=== PATIENT | female | born 1980 | race American Indian/Alaskan Native ===

== ENCOUNTER 2024-09-17 09:47 | Outpatient (REF) | payer OTHER, SELFPAY ==
--- NOTE | ~2024-09-17 | US_ITS ---
EXAMINATION: US ABDOMEN COMPLETE CLINICAL INFORMATION: Abdominal pain.. COMPARISON: None available. TECHNIQUE: Real-time imaging of the abdominal viscera using grayscale and color Doppler technique. FINDINGS: PANCREAS: No peripancreatic fluid collections. ABDOMINAL AORTA: The proximal, mid, and distal segments are normal in caliber. INFERIOR VENA CAVA: Visualized portions are normal. LIVER: Liver measures 16 cm. Increased echotexture. No nodular surface. No solid or cystic lesion seen by the glass technologist. No intrahepatic biliary ductal dilatation. GALLBLADDER: Numerous hyperechoic lesions with posterior shadowing back in the gallbladder. The gallbladder wall measures 4 mm. No pericholecystic fluid collection. COMMON BILE DUCT: 4 mm. RIGHT KIDNEY: 10 cm. Normal echotexture. Normal renal cortical thickness. No hydronephrosis. No solid or cystic lesion. Normal flow on color Doppler interrogation of the renal hilum. LEFT KIDNEY: 11 cm. Normal echotexture. Normal renal cortical thickness. No hydronephrosis. No solid or cystic lesion. Normal flow on color Doppler interrogation of the renal hilum. SPLEEN: 9 cm. No focal lesion.. FREE FLUID: None. US/US abdomen complete IMPRESSION: Cholelithiasis. Upper normal limits gallbladder wall. Hepatomegaly, mild and steatosis. No hydronephrosis. No ascites. Electronically signed by: Louie Walker MD 09/17/2024 10:50 AM EST
--- OUTSIDE RECORDS SUMMARY | 2024-09-17 11:21 | XMS_ITS | Continuity of Care Document ---
Author Organization [facility] Address [address] [facility] [address] [place] [address] Phone Care Team Providers Care Life Management Teacher Name Role Phone Elli Douglas, F.A.C.S., Mimi Unavailable Un available Allergies, Adverse Reactions, Alerts Substance Reaction Status Criticality No Known Allergies Active No Inform ation Medications Medication Instructions Dosage Effective Dates (start - stop) Status Comments DermOtic Oil 0.01 % ear drops instill 5 drop by otic route 2 times every day into affected ear(s) 5.00 drop - Active betamethasone dipropionate 0.05 % topical cream apply by topical route every day a thin layer to the affected area(s) 0.00 - Active clindamycin HCl 300 mg capsule take 1 capsule by ORAL route every 8 hours 300 MG - No Longer Active Procedures Procedure Date Offic/outpt E&m Estab Minor 18 Offic/outpt E&m Estab Low-mod 8 Offic/outpt E&m Estab Minor 16 Offic Cons New/estab Mod 40 Mi 16 Advance Directives Directive Yes / No Effective Date File Name No Information Encounters Encounter Description Practice Location Reason(s) For Visit Diagnoses Date Provider Providers Copied on Encounter Offic/outpt E&m Estab Minor 10 [facility], [address] [facility] [address], [place], [place], [id number], [place] tel:[phone] [facility] Follow Up of Ear pain (chief complaint) Chronic diffuse otitis externa of right earDermatiti s Oct- 8 Elli Douglas, Joao Le. [address] [place] [address], [address], [address] [place] [address], . tel:[phone] Referring Provider: Santana nickerson MD, [address] [facility], [place], [place], [facility]. tel:[phone] Offic/outpt E&m Estab Low-mod [facility], [address] [place] [address], [address] [place] [address], [place] tel:[phone] [facility] ear pain (chief complaint) Chronic diffuse otitis externa of right earDermatiti s Sep- 8 Elli Douglas, Joao Le. [address] [place] [address], [address] [place] [address], [address] [place] [address], . tel:[phone] Referring Provider: Santana nickerson MD, [address] [facility], [place], [place], [facility]. tel:[phone] Offic/outpt E&m Estab Minor 10 [facility], [address] [place] [address], [address] [place] [address], [place] tel:[phone] [facility] ear drainage (chief complaint) Dermatitis Dec-0 6 Brian Byrne. [address] [place] [address] [place] [address], [address] [place] [address], [place]. tel:[phone] Referring Provider: Santana nickerson MD, [address] [facility], [place], [place], [facility]. tel:[phone] Offic Cons New/estab Mod 40 Mi [facility], [address] [facility] [address], [place], [place], [id number], tel:[phone] [facility] ear pain (chief complaint) DermatitisCh ronic diffuse otitis externa of right ear Oct- 6 Elli Douglas, Joao Le. [address] [facility], [address], [place], [place], [id number], . tel:[phone] Referring Provider: Santana nickerson MD, [address] [facility], [place], [place], [facility]. tel:[phone] Family History Family Member Type Diagnosis Age At Onset Family h/o Problem (finding) Kidney Family h/o Problem (finding) Migraines Family h/o Problem (finding) Asthma Family h/o Problem (finding) Depression Payers Payer name Insurance type Covered libertarian ID Herbie ley(s) [facility] [id number] Social History Type Description Quantity Date Captured Comments Alcohol Use Details Unknown Caffeine Use Details Unknown Tobacco Use Status No Information Smoking Status Never smoker Non-Smoking Tobacco Use Details : No Details Available : No Details Available Sex Female Yes - Patient is currently Vital Signs Date / Time: Height Weight BMI Pulse Rate Blood Pressure Temperature Respiratory Rate Body Surface Area Head Circumference Head Circ. Percentile Wt./Yao. Percentile BMI percentile Pulse Ox Inhaled Ox 11:26 AM 64.00 in 77.111 kg (170.00 lbs) 29.1 8 kg/m yelitzaer (2) Chief Complaint And Reason For Visit From encounter dated '10/29/2017 11:10'. Follow Up of Ear pain (chief complaint). Description: The patient states the follow up of ear pain is in the right ear. The problem is improving. Pertinent negatives include bleeding from ear(s), congestion (nasal), cough, decreased appetite, dizziness, drainage (clear), drainage (purulent), ear popping, ear pressure, fever, fullness in ears, hearing deficit, irritability, loss of balance, malaise, mastoid bone tenderness, nausea, redness/swelling outer ear, ringing in ears, tooth pain and vomiting. Additional information: She states that she did finish the Clindamycin. She is not having any pain but her ear is still itching. Reason For Referral Reason For Referral No Information History Of Present Illness Encounter Date Complaint History Of Prese nt Illness Follow Up of Ear pain The patien t states the follow up of ear pain is in the right ear. The problem is improving. Pertinent negatives include bleeding from ear(s), congestion (nasal), cough, decreased appetite, dizziness, drainage (clear), drainage (purulent), ear popping, ear pressure, fever, fullness in ears, hearing deficit, irritability, loss of balance, malaise, mastoid bone tenderness, nausea, redness/swelling outer ear, ringing in ears, tooth pain and vomiting. Additional information: She states that she did finish the Clindamycin. She is not having any pain but her ear is still itching. ear pain Onset: 2 days ag o. The patient states the ear pain is in the right ear. Associated symptoms include fullness in ears. Pertinent negatives include fever, hearing deficit, ringing in ears and vomiting. Additional information: She is having pain and itching that has been on and off for a few months. She went to PCP and was told the right ear was inflamed. ear drainage Onset: 12 months ago. Severity level is 3. Duration: varies. The patient states the ear drainage is in the right ear. It occurs randomly. The problem is with no change. Denies aggravating factors. Relieving factors include topical eardrops. Associated symptoms include hearing deficit. Additional information: The patient saw Dr. Douglas for this problem in the past and was given DermOtic drops which does seem to help but she is having trouble hearing from this ear now. ear pain Onset: 1 year ag o. It occurs randomly. The problem is with no change. Denies aggravating factors. Denies relieving factors. Associated symptoms include fullness in ears. Pertinent negatives include bleeding from ear(s), congestion (nasal), cough, decreased appetite, dizziness, drainage (clear), drainage (purulent), ear popping, ear pressure, fever, hearing deficit, irritability, loss of balance, malaise, mastoid bone tenderness, nausea, redness/swelling outer ear, ringing in ears, tooth pain and vomiting. Functional Status Date Functional Assessmen t No Information Instructions Date Instruction Additional Infor mation No Information Assessments Type Assessment Date assessment Chronic diffuse otitis externa o f right ear assessment Dermatitis Patient Care Teams Name Effective Dates (start - stop) Status Members No Information
--- OUTSIDE RECORDS SUMMARY | 2024-09-17 11:22 | XMS_ITS | Continuity of Care Document ---
Author Organization [facility] Address [address] [place] [address] Phone Care Team Providers Care Vacuum Evaporation Operator Name Role Phone Luz Marina Ham APRN Unavailabl e Allergies, Adverse Reactions, Alerts Substance Reaction Status Criticality No Known Drug Allergies Active No I nformation Medications Medication Instructions Dosage Effective Dates (start - stop) Status Comments Tylenol 325 mg capsule as needed - Active Wellbutrin XL 300 mg 24 hr tablet, extended release take 1 tablet by oral route every day 300 MG - Active oseltamivir 75 mg capsule take 1 capsule by oral route 2 times every day 75 MG - No Longer Active Procedures Procedure Date Agt-immunassay Dir Obs; Strep 0 Offic/outpt E&m Estab Low-mod 0 Agt-immunassay Dir Obs; Strep 8 Offic/outpt E&m Estab Low-mod 8 Advance Directives Directive Yes / No Effective Date File Name No Information Encounters Encounter Description Practice Location Reason(s) For Visit Diagnoses Date Provider Providers Copied on Encounter Offic/outpt E&m Estab Low-mod [facility], [address] [place], [address], [place] tel:[phone] Urgent Care URI (chief complaint) Sore throatFlu-lik e symptomsBody mass index (BMI) 27.0-27.9, adult b 0 Jitendra Raza. [address] [place] [address], [facility], . tel:[phone] Referring Provider: Santana nickerson MD, [address], [address], [place], [place], [facility]. tel:[phone] [facility], [address] [place] [address], [facility], tel:[phone] Urgent Care No Information 0 Krystle Torres. [facility], [address] [place] [address], [id number], . tel:[phone] Offic/outpt E&m Estab Low-mod [facility], [address] [place] [address], [address], tel:[phone] Urgent Care URI (chief complaint) Sore throat 8 No Information Referring Provider: Santana nickerson MD, [address], [address], [place], [place], [facility]. tel:[phone] Family History Family Member Type Diagnosis Age At Onset No Information Payers Payer name Insurance type Covered green party ID Authorbaljindera av(s) [facility] [id number] Social History Type Description Quantity Date Captured Comments Alcohol Use Details Unknown Caffeine Use Details Unknown Tobacco Use Status No Information Smoking Status No Information Sex Female Vital Signs Date / Time: Height Weight BMI Pulse Rate Blood Pressure Temperature Respiratory Rate Body Surface Area Head Circumference Head Circ. Percentile Wt./Yao. Percentile BMI percentile Pulse Ox Inhaled Ox 1:25 PM 63.75 in 73.210 kg (161.40 lbs) 27.9 2 kg/m eter (2) 78 /min 104/73 mm[Hg] 98.30 F 14 /min Chief Complaint And Reason For Visit From encounter dated '08/20/2019 13:23'. URI (chief complaint). Description: Onset: on 08/19/2019. Associated symptoms include fatigue, sorethroat and BA. Pertinent negatives include fever. Additional information: with flu. Tylenol@ 1030. Reason For Referral Reason For Referral No Information Plan Of Treatment Date Type Action Status Goal Depression screening. Due on due Goal Tdap. Due on due Goal PAP. Due on due Goal Diabetes Screeni ng (high risk for CVD/ Diabetes) - HgbA1C. Due on due Goal Blood Pressure S creening (high risk for hypertension). Due on due Goal Influenza vaccine. Due on due Goal Alcohol Misuse Screening. Du e on due Goal HIV Screen. Due on due Goal Blood Pressure Screening. Du e on due Goal Pap/HPV testing. Due on due Goal Td vaccine. Due on due Goal Depression screening. Due on due Goal Tdap. Due on due Goal PAP. Due on due Goal Diabetes Screeni ng (high risk for CVD/ Diabetes) - HgbA1C. Due on due Goal Blood Pressure S creening (high risk for hypertension). Due on due Goal Influenza vaccine. Due on due Goal Alcohol Misuse Screening. Du e on due Goal HIV Screen. Due on due Goal Blood Pressure Screening. Du e on due Goal Pap/HPV testing. Due on due Goal Td vaccine. Due on Apr-21-20 18 due History Of Present Illness Encounter Date Complaint History Of Prese nt Illness URI Onset: on 2019. Associated symptoms include fatigue, sore throat and BA. Pertinent negatives include fever. Additional information: with flu. Benedicto @ 1030. URI Onset: 3 days ag o. Context: started with st and recent flight. . Associated symptoms include fatigue, low grade fever, headache and chest congestion. Pertinent negatives include nasal congestion and rhinorrhea. The patient has a history of asthma. Functional Status Date Functional Assessmen t No Information Instructions Date Instruction Additional Infor mariya Clinical presentatio n suggestive of FluSymptoms can last 4-7 daysStay hydrated by increasing fluid intakeRest Treat fever/ body aches with ibuprofen and/or Tylenol May use OTC cough syrup such as DelsymAvoid sharing drinksWash hands frequently Tamiflu x5 daysFollow up with your PCP Related to Flu-like symptoms Rapid strep: Negativ eWarm salt water gargles can help with pain relief.Sipping on warm water and honey can hep with pain reliefSoft foodsDo not share drinks, and wash hands frequently. Stay hydrated by increasing fluid intake.Follow up with PCP Related to Sore throat Assessments Type Assessment Date assessment Sore throat assessment Flu-like symptoms assessment Body mass index (BMI) 27.0-27.9, adult Mental Status Date Cognitive Assessment Orientation - Warren ed to time, place, person, situation. Patient Care Teams Name Effective Dates (start - stop) Status Members No Information
== END 2024-09-17 09:48 | disposition home or self-care (01) ==
LOC: HO.UMASIMG 09:47
PROVIDERS: Visit Provider Emergency Medicine
DX: R10.84 Generalized abdominal pain (principal)
CPT/HCPCS: 76700

== ENCOUNTER → 2024-09-17 10:00 | Outpatient (BNV) | payer OTHER, SELFPAY | PROVIDERS: Visit Provider Radiology Diagnostic Radiology | DX: R10.9 Unspecified abdominal pain (principal) | CPT/HCPCS: 76700 ==